=== PATIENT | female | born 1995 | race Caucasian/White ===

== ENCOUNTER 2017-06-06 09:39 | Emergency (ER) | payer OTHER ==
[2017-06-06 09:51] VITALS: TEMP 98.5; BMI 22.7
--- NOTE | 2017-06-06 10:50 | PDOC ---
History of Present Illness - General Chief Complaint: Chest Pain Stated Complaint: CHEST PRESSURE Time Seen by Provider: 06/06/17 10:27 History Source: Patient Exam Limitations: No Limitations - History of Present Illness Initial Comments: 06/06/17 10:40 21 yr female with intermittent chest pressure and shortness of breath for one week. Pt recently had lipsouction to her abdomen and back in [facility] 4 weeks ago returned from 2 weeks ago. Pt admits to some swelling to her lower legs. Pt smokes houka, denies drug tobacco or ETOH use. no hormonal control. Pt states "I feel like I can't take a deep breath". Presenting Symptoms: Chest Pain Timing/Duration: reports: constant Location: reports: substernal Past History - Travel Traveled outside of the country in the last 30 days: Yes If so, where?: [facility] - Past Medical History Allergies/Adverse Reactions: Allergies Allergy/AdvReac Type Severity Reaction Status Date / Time No Known Allergies Allergy Verified 06/06/17 09:47 Home Medications: Ambulatory Orders NK [No Known Home Medication] 06/06/17 Anemia: No Asthma: No Cancer: No Cardiac Disorders: No CVA: No COPD: No CHF: No Dementia: No Diabetes: No GI Disorders: No Disorders: No HTN: No Hypercholesterolemia: No Liver Disease: No Seizures: No Thyroid Disease: No Other medical history: DENIES. - Surgical History Abdominal Surgery: Yes Appendectomy: No Cardiac Surgery: No Cholecystectomy: Yes Lung Surgery: No Neurologic Surgery: No Orthopedic Surgery: No Other Surgical History: 06/06/17 10:42 liposuction abdomen and back - Immunization History Immunization Up to Date: Yes - Psycho/Social/Smoking Cessation Hx Anxiety: No Suicidal Ideation: No Smoking Status: No Smoking History: Never smoked Have you smoked in the past 12 months: No Information on smoking cessation initiated: No Hx Alcohol Use: Yes (SOCIAL) Drug/Substance Use Hx: No Substance Use Type: Alcohol Cardiac Specific PMH - Complaint Specific PMHX Abdominal Aortic Aneurysm: No Angina: No Cardiac Arrhythmia: No Cardiac Stent: No GERD: No Myocardial Infarction: No Pacemaker: No Pulmonary Embolus: No Valvular Heart Disease: No Peripheral Vascular Disease: No Review of Systems - Review of Systems Able to Perform ROS?: Yes Is the patient limited Panamanian proficient: No Constitutional: No: Symptoms Reported HEENTM: No: Symptoms Reported Respiratory: Yes: Shortness of Breath Cardiac (ROS): Yes: Other (chest pressure ) *Physical Exam - Vital Signs Last Vital Signs Temp Pulse Resp BP Pulse Ox 98.5 F 89 16 132/78 99 06/06/17 09:47 06/06/17 14:02 06/06/17 14:02 06/06/17 14:02 06/06/17 14:02 - Physical Exam General Appearance: Yes: Nourished, Appropriately Dressed HEENT: positive: EOMI, DESMOND, Normal ENT Inspection, TMs Normal, Pharynx Normal Neck: positive: Supple Respiratory/Chest: positive: Lungs Clear, Normal Breath Sounds. negative: Chest Tender Cardiovascular: positive: Regular Rhythm, Regular Rate Gastrointestinal/Abdominal: positive: Normal Bowel Sounds, Soft Musculoskeletal: positive: Normal Inspection Extremity: positive: Normal Capillary Refill, Normal Inspection, Normal Range of Motion. negative: Swelling, Calf Tenderness Integumentary: positive: Normal Color, Dry, Warm Neurologic: positive: biological science technician fish II-XII NML intact, Fully Oriented, Alert, Normal Mood/ Affect, Normal Response, Motor Strength 5/5 Heart Score/ECG Review - History History: Slightly suspicious - Electrocardiogram EKG: Normal - Age Age: </= 45 - ECG Intrepretation Rhythm: Regular Rhythm ED Treatment Course - LABORATORY CBC & Chemistry Diagram: 06/06/17 10:55 06/06/17 10:55 - ADDITIONAL ORDERS Additional order review: Laboratory Results 06/06/17 06/06/17 06/06/17 10:55 10:55 10:55 D-Dimer < 200 Sodium 140 Potassium 3.9 Chloride 107 Carbon Dioxide 27 Anion Gap 6 L BUN 11 D Creatinine 0.6 Creat Clearance w eGFR > 60 Random Glucose 81 D Calcium 9.1 Total Bilirubin 0.3 D AST 16 D ALT 25 Alkaline Phosphatase 72 D Creatine Kinase 68 Troponin I < 0.02 Total Protein 7.7 Albumin 4.2 Serum , Qual Negative 06/06/17 10:55 RBC 4.52 MCV 90.0 MCHC 32.3 RDW 14.7 MPV 9.2 Neutrophils % 59.5 D Lymphocytes % 30.5 D Monocytes % 8.1 D Eosinophils % 1.1 D Basophils % 0.8 D - Medications Given in the ED: ED Medications Discontinued Medications Generic Name Dose Route Start Last Admin Trade Name Freq PRN Reason Stop Dose Admin Ketorolac Tromethamine 30 mg 06/06/17 12:58 06/06/17 13:03 Toradol Injection - IVPUSH 06/06/17 12:59 30 mg ONCE ONE Administration Medical Decision Making - Medical Decision Making 06/06/17 11:07 cc: "I can't catch my breath" and "chest pressure" once l;ast week, then again today pt denies fever or chills, no cough, recent travel on airplane from [place] 2 weeks ago, had back and abdomen liposuction pt takes no medications no allergies, pt states she had some swelling to her lower legs after coming home on airplane denies now will r/o PE as pt has risk factors recent travel, recent surgery is mildly tachycardic pt aware of plan all questions asked and answered labs, EKG, 06/06/17 11:50 pt to main ER for further evaluation and workup for PE pt signed out to Kathe Weber NP. 06/06/17 18:44 *DC/Admit/Observation/Transfer Diagnosis at time of Disposition: Musculoskeletal chest pain - Discharge Dispostion Disposition: HOME Condition at time of disposition: Improved - Referrals Referrals: Yassine Cooper MD [Primary Care Provider] - - Patient Instructions Printed Discharge Instructions: DI for Musculoskeletal Pain Additional Instructions: I recommend taking Motrin 600 mg every 8 hours for discomfort. Avoid movements that trigger discomfort. If symptoms worsen please return to the ED.
[2017-06-06 11:02] LABS: BASOPHIL 0.8 % (0-2.0); EOSINOPHIL 1.1 % (0-4.5); MCH 29.1 pg (25.7-33.7); MCHC 32.3 g/dl (32.0-36.0); MEAN PLT VOLUME 9.2 fl (7.5-11.1); NEUTROPHILS 59.5 % (42.8-82.8); PLATELET COUNT 211 K/MM3 (134-434); RDW 14.7 % (11.6-15.6); WHITE BLOOD COUNT 6.5 K/mm3 (4.0-10.0)
[2017-06-06 11:21] LABS: ALBUMIN 4.2 g/dl (3.4-5.0); ANION GAP 6 (8-16); CALCIUM 9.1 mg/dL (8.5-10.1); CO2 27 mmol/L (21-32); GLUCOSE,RANDOM 81 mg/dL (74-106)
[2017-06-06 11:26] LABS: BILIRUBIN,TOTAL 0.3 mg/dL (0.2-1.0); CREATININE 0.6 mg/dL (0.55-1.02); SGOT/AST 16 U/L (15-37); SGPT/ALT 25 U/L (12-78); TOT PROT 7.7 g/dl (6.4-8.2)
[2017-06-06 11:28] LABS: ALK PHOS 72 U/L (45-117); CPK 68 IU/L (26-192); TROPONIN I < 0.02 ng/ml (0.00-0.05)
--- NOTE | 2017-06-06 12:17 | PDOC ---
*Physical Exam - Vital Signs Last Vital Signs Temp Pulse Resp BP Pulse Ox 98.5 F 103 H 19 140/96 99 06/06/17 09:47 06/06/17 09:47 06/06/17 09:47 06/06/17 09:47 06/06/17 09:47 ED Treatment Course - LABORATORY CBC & Chemistry Diagram: 06/06/17 10:55 06/06/17 10:55 - ADDITIONAL ORDERS Additional order review: Laboratory Results 06/06/17 06/06/17 10:55 10:55 Sodium 140 Potassium 3.9 Chloride 107 Carbon Dioxide 27 Anion Gap 6 L BUN 11 D Creatinine 0.6 Creat Clearance w eGFR > 60 Random Glucose 81 D Calcium 9.1 Total Bilirubin 0.3 D AST 16 D ALT 25 Alkaline Phosphatase 72 D Creatine Kinase 68 Troponin I < 0.02 Total Protein 7.7 Albumin 4.2 Serum , Qual Negative 06/06/17 10:55 RBC 4.52 MCV 90.0 MCHC 32.3 RDW 14.7 MPV 9.2 Neutrophils % 59.5 D Lymphocytes % 30.5 D Monocytes % 8.1 D Eosinophils % 1.1 D Basophils % 0.8 D Medical Decision Making - Medical Decision Making 06/06/17 11:30 Patient received in sign out from fast track for complaints of chest pain, shortness of breath on inspiration. Patient recently return from [facility] a few weeks ago after having cosmetic surgery. Patient concerning for PE. Labs pending 06/06/17 12:58 Laboratory Tests 06/06/17 06/06/17 06/06/17 10:55 10:55 10:55 WBC 6.5 D Hgb 13.2 Hct 40.7 Plt Count 211 D Neutrophils % 59.5 D D-Dimer < 200 Sodium Potassium Chloride Carbon Dioxide Anion Gap BUN Creatinine Random Glucose Calcium Creatine Kinase Troponin I Serum , Qual Negative 06/06/17 10:55 WBC Hgb Hct Plt Count Neutrophils % D-Dimer Sodium 140 Potassium 3.9 Chloride 107 Carbon Dioxide 27 Anion Gap 6 L BUN 11 D Creatinine 0.6 Random Glucose 81 D Calcium 9.1 Creatine Kinase 68 Troponin I < 0.02 Serum , Qual Patient ordered for 30 mg of Toradol IV. Patient remained sinus rhythm at 70-80 on monitor. Satting at 100%. 06/06/17 13:51 Patient states feeling better. Patient will be discharged home. *DC/Admit/Observation/Transfer Diagnosis at time of Disposition: Musculoskeletal chest pain - Discharge Dispostion Disposition: HOME Condition at time of disposition: Improved - Referrals Referrals: Yassine Cooper MD [Primary Care Provider] - - Patient Instructions Printed Discharge Instructions: DI for Musculoskeletal Pain Additional Instructions: I recommend taking Motrin 600 mg every 8 hours for discomfort. Avoid movements that trigger discomfort. If symptoms worsen please return to the ED.
[2017-06-06] MEDS ORDERED: KETOROLAC TROMETHAMINE 30 MG/1 ML VIAL IVPUSH ONE (12:58)
[2017-06-06] MEDS ORDERED: KETOROLAC TROMETHAMINE 30 MG/1 ML VIAL ONE (12:59)
[2017-06-06 14:03] VITALS: BP 132/78; PULSE 89
--- NOTE | 2017-06-09 16:59 | EKG ---
Test Reason : Blood Pressure : / mmHG Vent. Rate : 087 BPM Atrial Rate : 087 BPM P-R Int : 122 ms QRS Dur : 082 ms QT Int : 346 ms P-R-T Axes : 020 -02 018 degrees QTc Int : 416 ms SINUS RHYTHM WITH MARKED SINUS ARRHYTHMIA OTHERWISE NORMAL ECG WHEN COMPARED WITH ECG OF 25-JUN-2013 00:32, NO SIGNIFICANT CHANGE WAS FOUND Confirmed by CHAVEZ HOLMAN MD ([id number]) on 06/09/2017 4:59:32 PM Referred By: Confirmed By:CHAVEZ HOLMAN MD
== END 2017-06-06 14:06 | disposition home or self-care (01) ==
LOC: JERFT 09:39 → JER 09:39
PROC: 3E0233Z Introduction of Anti-inflammatory into Muscle, Percutaneous Approach (ICD-10-PCS; principal; 2017-06-06)
DX: R07.89 Other chest pain (principal); Z98.890 Other specified postprocedural states
CPT/HCPCS: 36415; 80053; 84484; 84703; 85025; 85379; 93005; 93010; 96372; 99285-25

== ENCOUNTER 2018-05-11 11:55 | Inpatient (IN) | payer OTHER ==
[2018-05-11] MEDS ORDERED: ELECTROLYTE-148 SOLN 500 ML IV ONE (12:00)
[2018-05-11] MEDS: ELECTROLYTE-148 SOLN 1,000 ML IV SCH (12:45)
[2018-05-11 12:52] VITALS: BMI 28.8
--- NOTE | 2018-05-11 12:52 | HP ---
Past Medical History - Admission History Source: Patient, Medical Record Limitations to Obtaining History: No Limitations - Past Medical History Cardiovascular: No: AFIB, HTN Pulmonary: No: Asthma Renal/: No: UTI Reproductive: No: Endometriosis, Fibroids, PID ...: 2 ...Para: 1 Heme/Onc: No: Anemia Infectious Disease: No: HIV, MRSA, STD's Psych: Yes: Anxiety. No: Bipolar, Depression - Past Surgical History Past Surgical History: Yes: Cholecystectomy Hx Myomectomy: No Hx Transabdominal Cerclage: No Additional Surgical History: D&C. liposuction - Smoking History Smoking history: Never smoked Have you smoked in the past 12 months: No - Alcohol/Substance Use Hx Alcohol Use: Yes (SOCIAL) - Social History ADL: Independent History of Recent Travel: No Home Medications - Allergies Allergies/Adverse Reactions: Allergies Allergy/AdvReac Type Severity Reaction Status Date / Time No Known Allergies Allergy Verified 05/11/18 12:34 - Home Medications Home Medications: Ambulatory Orders Vit 108/Iron/Folic AC [ One Tablet] 1 each PO DAILY 05/11/18 Review of Systems - Review of Systems Constitutional: reports: No Symptoms Eyes: reports: No Symptoms HENT: reports: No Symptoms Neck: reports: No Symptoms Cardiovascular: reports: No Symptoms Respiratory: reports: No Symptoms Gastrointestinal: reports: No Symptoms Genitourinary: reports: No Symptoms Breasts: reports: No Symptoms Reported Musculoskeletal: reports: No Symptoms Integumentary: reports: No Symptoms Neurological: reports: No Symptoms Endocrine: reports: No Symptoms Hematology/Lymphatic: reports: No Symptoms Psychiatric: reports: No Symptoms Physical Exam - Maternity Vital Signs: Vital Signs Temperature 98.6 F 05/11/18 12:34 Pulse Rate 95 H 05/11/18 12:34 Respiratory Rate 18 05/11/18 12:34 Blood Pressure 128/64 05/11/18 12:34 O2 Sat by Pulse Oximetry (%) Constitutional: Yes: Well Nourished, No Distress, Calm Eyes: Yes: Conjunctiva Clear, EOM Intact HENT: Yes: Atraumatic, Normocephalic Cardiovascular: Yes: WNL Breast(s): Yes: WNL - Abdominal Exam/OB Fundal Height: 39 Number of Fetuses: Single Presentation: Vertex Category: I - Vaginal Exam/OB Vaginal Bleediing: No Presentation: Vertex/Position - Physical Exam Psychiatric: Yes: Alert, Oriented Hemorrhage Risk Assessment - Risk Factors Medium Risk Factors: Yes: None High Risk Factors: Yes: None Risk Score: 1 Risk Level: Medium Risk Problem List - Problems (1) Encounter for delivery without indication Code(s): O82 - ENCOUNTER FOR DELIVERY WITHOUT INDICATION Assessment/Plan 22 y/o with SIUP at 39.2 weeks for elective primary delivery AFVSS FHTS cat 1 discussed delivery in office including risks of bleeding/infection/ damage to surrounding tissues/risk in future pregnancies of abnormal placentation/risks of /TOLAC etc, pt aware and understands consent for primary delivery signed NPO SCDs anesthesia/nursery aware
[2018-05-11] MEDS ORDERED: CITRIC ACID/SODIUM CITRATE 30 ML UNIT-DOSE CUP PO ONE (13:00)
[2018-05-11] MEDS ORDERED: TUBERCULIN PPD 5 TU/0.1ML SYRINGE (IN PATIENT USE ONLY) ID SCH (13:15)
[2018-05-11] MEDS ORDERED: OXYTOCIN 20 UNITS in 0.9% NS 40 UNIT/2,000 ML INFUS.BAG IV ONE (14:02)
[2018-05-11] MEDS ORDERED: morphine SULFATE/Preservative Free 0.5 MG/ML (1cc Syringe) ONE (14:06)
[2018-05-11] MEDS ORDERED: ceFAZolin SODIUM 1 GM VIAL ONE (14:06)
[2018-05-11] MEDS ORDERED: PHENYLEPHRINE HCL 10 MG/1 ML SINGLE DOSE VIAL ONE (14:06)
[2018-05-11] MEDS ORDERED: METHYLERGONOVINE MALEATE 0.2 MG/1 ML AMP IM PRN (14:16)
[2018-05-11] MEDS ORDERED: oxyCODONE HCL 5 MG TABLET PO PRN (14:16)
[2018-05-11] MEDS ORDERED: IBUPROFEN 600 MG TABLET (FP) PO PRN (14:16)
[2018-05-11] MEDS ORDERED: ONDANSETRON 4 MG/2 ML VIAL IVPUSH PRN (14:21)
[2018-05-11] MEDS ORDERED: MIDAZOLAM HCL 2 MG/2 ML SINGLE DOSE VIAL ONE ×2 (14:39→14:42)
--- NOTE | 2018-05-11 14:57 | OP ---
Operative Note - Note: Operative Date: 05/11/18 ([id number]) Pre-Operative Diagnosis: Desires primary delivery Operation: primary low transverse delivery Findings: normal b/l tubes and ovaries Post-Operative Diagnosis: Same as Pre-op Surgeon: Marsha Velazco Nuclear Powerplant Mechanic Helper: Joel Donaldson Anesthesiologist/WIND SITE MANAGER: Ezequiel Cagle Anesthesia: Spinal Specimens Removed: placenta Estimated Blood Loss (mls): 500 Operative Report Dictated: Yes
[2018-05-11] MEDS: OXYTOCIN 20 UNITS in 0.9% NS 20 UNIT/1,000 ML INFUS.BAG IV SCH (15:00)
--- NOTE | 2018-05-11 15:18 | SURG ---
Surgery Anaesthetic Technician Note Anaesthetic Technician: Zachary Blum PA-C Date of Service: 05/11/18 Diagnosis: Elective Cesarian section Procedure: Cesarian section I was present for the entirety of the operative procedure. For further detail, please refer to operative report.
[2018-05-11] MEDS ORDERED: OXYTOCIN 20 UNITS in 0.9% NS 20 UNIT/1,000 ML INFUS.BAG IV ONE (16:35)
[2018-05-11] MEDS: IBUPROFEN 800 MG/8 ML IJ IVPB PRN (17:25)
--- NOTE | 2018-05-11 19:35 | OP ---
DATE OF OPERATION: 05/11/2018 PREOPERATIVE DIAGNOSIS: Single intrauterine at 39.2 weeks' gestation, elective primary section delivery, declined vaginal delivery. POSTOPERATIVE DIAGNOSIS: Single intrauterine at 39.2 weeks' gestation, elective primary section delivery, declined vaginal delivery. PROCEDURE: Primary low transverse section. SURGEON: Marsha Velazco DO TEA LEAF READER: ANESTHESIA: Spinal by Dr. Cagle ESTIMATED BLOOD LOSS: 500 mL. COMPLICATIONS: None. SPECIMEN: Placenta. Sponge, needle, and instrument count correct. DISPOSITION: Stable to PACU. BRIEF HISTORY AND PROCEDURE: The patient is a 22-year-old G2, P0-0-0-1-0 at 39.2 weeks who elected to undergo a primary delivery. The patient was counseled on her options in the office, and she elected after thorough coughing for a primary section. Consents were signed upon admission on May 11, 2018. After consents were signed, the patient was taken back to the operating room and given spinal anesthesia by Dr. Cagle without difficulty and placed in the dorsal supine position. A Frank catheter was placed under sterile conditions. She was prepped and draped in the usual sterile fashion, and a hard time-out was performed. A Pfannenstiel skin incision was created in the skin with a scalpel and carried to the underlying layer of rectus fascia with the Bovie. The fascia was incised at the midline. Incision was carried in a superolateral direct with the Bovie. The fascia was tented upward and dissected off from the underlying layer of rectus with the Bovie. The musculature was identified, retracted laterally, and the peritoneum was entered bluntly and carefully dissected to allow for adequate room for delivery. A bladder blade was inserted. A transverse incision was created in the lower uterine segment, which was repaired with a double layer closure using 1 Vicryl in a running locked fashion, 2nd layer being 0 Biosyn in a running locked fashion. Bilateral tubes and ovaries were noted to be normal. Hysterotomy was noted to be hemostatic. The posterior cul-de-sac was suctioned and cleared of all amniotic membrane, blood clot, and debris. The uterus was placed back into the abdomen. Bilateral gutters were inspected and cleared of all debris. The peritoneum was reapproximated using 2-0 Vicryl in a running fashion. The musculature was reapproximated using 2-0 chromic in a single mattress suture. The fascia was reapproximated using 1 Vicryl in a running fashion. The subcutaneous tissue was irrigated and reapproximated in several interrupted sutures using 3-0 Vicryl suture, and the skin was reapproximated in a subcuticular fashion using Vicryl suture, and Steri-Strips were applied. The patient tolerated the procedure well and is recovering in stable condition in the PACU after the procedure. Sponge, needle, and instrument count was reported to be correct. MARSHA VELAZCO DO /[id number]
[2018-05-12] MEDS: IBUPROFEN 800 MG/8 ML IJ IVPB PRN (04:20)
[2018-05-12 08:43] LABS: BASO % 0.4 % (0-2.0); EOS % 0.4 % (0-4.5); HEMATOCRIT 31.2 % (32.4-45.2); HEMOGLOBIN 10.4 GM/dL (10.7-15.3); LYMPH % 16.3 % (8-40); MCH 28.3 pg (25.7-33.7); MCHC 33.3 g/dl (32.0-36.0); MEAN CELL VOLUME 84.9 fl (80-96); MEAN PLT VOLUME 8.7 fl (7.5-11.1); MONO % 6.9 % (3.8-10.2); PLATELET COUNT 184 K/MM3 (134-434); RBC 3.67 M/mm3 (3.60-5.2); RDW 14.6 % (11.6-15.6); WHITE BLOOD COUNT 11.3 K/mm3 (4.0-10.0)
[2018-05-12] MEDS: IBUPROFEN 600 MG TABLET (FP) PO PRN ×4 (08:57→22:24)
[2018-05-12] MEDS: SIMETHICONE 80 MG TAB.CHEW (FP) PO PRN ×4 (08:57→22:24)
[2018-05-12] MEDS: ACETAMINOPHEN 325 MG TABLET (FP) PO PRN ×4 (08:58→22:25)
--- NOTE | 2018-05-12 09:18 | PN ---
Progress Note (SOAP) - Subjective Chief Complaint: Pt doing well sp Section - Current Medications Current Medications: Active Medications Acetaminophen (Tylenol -) 650 mg PO Q4H PRN PRN Reason: FEVER Last Admin: 05/12/18 08:58 Dose: 650 mg Acetaminophen (Tylenol -) 650 mg PO Q4H PRN PRN Reason: PAIN LEVEL 1-5 Bisacodyl (Dulcolax Suppository -) 10 mg RC PRN PRN PRN Reason: CONSTIPATION Diphenhydramine HCl (Benadryl Injection -) 25 mg IVPUSH Q4H PRN PRN Reason: Pruritis Diphtheria/Tetanus/Acell Pertussis (Boostrix -) 0.5 ml IM .ONCE ONE Stop: 05/12/18 10:01 Parenteral Electrolytes (Plasma-Lyte 148 -) 1,000 mls @ 125 mls/hr IV ASDIR [facility] Last Admin: 05/11/18 12:45 Dose: 125 mls/hr Oxytocin/Sodium Chloride (Normal Saline+20 Units Oxytocin -) 20 unit in 1,000 mls @ 125 mls/hr IV ASDIR [facility] Last Admin: 05/11/18 15:00 Dose: 125 mls/hr Ibuprofen (Caldolor Injection -) 800 mg IVPB Q8H PRN PRN Reason: PAIN LEVEL 6-10 Last Admin: 05/12/18 04:20 Dose: 800 mg Ibuprofen (Motrin -) 600 mg PO Q4H PRN PRN Reason: PAIN LEVEL 1-5 Last Admin: 05/12/18 08:57 Dose: 600 mg Methylergonovine Maleate (Methergine Injection -) 0.2 mg IM Q4H PRN PRN Reason: Excessive Bleeding (L&D) Ondansetron HCl (Zofran Injection) 4 mg IVPUSH Q4H PRN PRN Reason: NAUSEA Oxycodone HCl (Roxicodone -) 5 mg PO Q4H PRN PRN Reason: PAIN LEVEL 4 - 6 Oxycodone HCl (Roxicodone -) 10 mg PO Q4H PRN PRN Reason: PAIN LEVEL 7 - 10 Multivit/Folic Acid/Iron ( Vitamins (Sjr) -) 1 tab PO DAILY [facility] Simethicone (Mylicon -) 80 mg PO Q4H PRN PRN Reason: GAS Last Admin: 05/12/18 08:57 Dose: 80 mg Tuberculin PPD (Tubersol Intermediate Strength) 5 tu ID ONCE SURY Stop: 05/12/18 13:14 Last Admin: 05/11/18 16:42 Dose: 5 tu - Objective Vital Signs: Vital Signs Temperature 98.7 F 05/12/18 06:00 Pulse Rate 79 05/12/18 06:00 Respiratory Rate 18 05/12/18 06:00 Blood Pressure 105/61 05/12/18 06:00 O2 Sat by Pulse Oximetry (%) 100 05/11/18 16:10 Constitutional: Yes: Well Nourished, No Distress Neck: Yes: WNL Cardiovascular: Yes: WNL, Regular Rate and Rhythm Respiratory: Yes: WNL, Regular, CTA Bilaterally Gastrointestinal: Yes: WNL, Normal Bowel Sounds, Soft, Abdomen, Obese ....Post : Yes: Uterus firm, Uterus non-tender Musculoskeletal: Yes: WNL Extremities: Yes: WNL Edema: No Wound/Incision: Yes: Steri Strips, Open to air, Dressing Removed Labs Lab Results: CBC, BMP 05/12/18 07:10 Problem List - Problems (1) History of low transverse section Code(s): Z98.891 - HISTORY OF UTERINE SCAR FROM PREVIOUS SURGERY Assessment/Plan POD1 stable SP CS Plan oob ambulate
[2018-05-12] MEDS: PRENATAL VITAMINS W/ FOLIC ACID TABLET (FP) PO SCH (10:00)
--- NOTE | 2018-05-12 10:34 | PN ---
Progress Note (short form) - Note Progress Note: Anesthesia postop note 22 y/o F s/p spinal anesthesia for section, duramorph for postop pain management POD#1, vss, aaox3, pain well controlled, sensory motor intact distally. No anesthesia complications.
[2018-05-12] MEDS ORDERED: DIPHTH,PERTUSS(ACELL),TET 0.5 ML DISP.SYRIN IM ONE (12:00)
[2018-05-12] MEDS ORDERED: BISACODYL 10 MG SUPP.RECT RC PRN (14:16)
[2018-05-12] MEDS: OXYTOCIN 20 UNITS in 0.9% NS 20 UNIT/1,000 ML INFUS.BAG IV SCH (15:12)
[2018-05-12] MEDS: ELECTROLYTE-148 SOLN 1,000 ML IV SCH (15:12)
[2018-05-13] MEDS: oxyCODONE HCL 5 MG TABLET PO PRN ×2 (01:40→05:54)
[2018-05-13] MEDS: SIMETHICONE 80 MG TAB.CHEW (FP) PO PRN ×3 (05:54→23:21)
[2018-05-13] MEDS: ACETAMINOPHEN 325 MG TABLET (FP) PO PRN ×3 (05:55→23:21)
--- NOTE | 2018-05-13 07:18 | PN ---
Progress Note (SOAP) - Subjective Chief Complaint: Pt doing well - Current Medications Current Medications: Active Medications Acetaminophen (Tylenol -) 650 mg PO Q4H PRN PRN Reason: FEVER Last Admin: 05/12/18 17:25 Dose: 650 mg Acetaminophen (Tylenol -) 650 mg PO Q4H PRN PRN Reason: PAIN LEVEL 1-5 Last Admin: 05/13/18 05:55 Dose: 650 mg Bisacodyl (Dulcolax Suppository -) 10 mg RC PRN PRN PRN Reason: CONSTIPATION Diphenhydramine HCl (Benadryl Injection -) 25 mg IVPUSH Q4H PRN PRN Reason: Pruritis Ibuprofen (Caldolor Injection -) 800 mg IVPB Q8H PRN PRN Reason: PAIN LEVEL 6-10 Last Admin: 05/12/18 04:20 Dose: 800 mg Ibuprofen (Motrin -) 600 mg PO Q4H PRN PRN Reason: PAIN LEVEL 1-5 Last Admin: 05/12/18 22:24 Dose: 600 mg Methylergonovine Maleate (Methergine Injection -) 0.2 mg IM Q4H PRN PRN Reason: Excessive Bleeding (L&D) Ondansetron HCl (Zofran Injection) 4 mg IVPUSH Q4H PRN PRN Reason: NAUSEA Oxycodone HCl (Roxicodone -) 5 mg PO Q4H PRN PRN Reason: PAIN LEVEL 4 - 6 Oxycodone HCl (Roxicodone -) 10 mg PO Q4H PRN PRN Reason: PAIN LEVEL 7 - 10 Last Admin: 05/13/18 05:54 Dose: 10 mg Multivit/Folic Acid/Iron ( Vitamins (Sjr) -) 1 tab PO DAILY SURY Last Admin: 05/12/18 10:00 Dose: 1 tab Simethicone (Mylicon -) 80 mg PO Q4H PRN PRN Reason: GAS Last Admin: 05/13/18 05:54 Dose: 80 mg - Objective Vital Signs: Vital Signs Temperature 98.1 F 05/12/18 21:12 Pulse Rate 62 05/12/18 21:12 Respiratory Rate 18 05/12/18 21:12 Blood Pressure 114/61 05/12/18 21:12 O2 Sat by Pulse Oximetry (%) 100 05/11/18 16:10 Constitutional: Yes: Well Nourished, No Distress HENT: Yes: WNL Neck: Yes: WNL Respiratory: Yes: WNL, Regular Gastrointestinal: Yes: WNL, Normal Bowel Sounds, Soft ....Post : Yes: Uterus firm, Uterus non-tender Breast(s): Yes: WNL Musculoskeletal: Yes: WNL Extremities: Yes: WNL Edema: No Wound/Incision: Yes: Clean/Dry, Well Approximated, Dressing Dry and Intact Neurological: Yes: WNL, Alert, Oriented Labs Lab Results: CBC, BMP 05/12/18 07:10 Problem List - Problems (1) History of low transverse section Code(s): Z98.891 - HISTORY OF UTERINE SCAR FROM PREVIOUS SURGERY Assessment/Plan POD2 stable SP CS Plan oob ambulate
[2018-05-13] MEDS: PRENATAL VITAMINS W/ FOLIC ACID TABLET (FP) PO SCH (09:46)
[2018-05-13] MEDS: IBUPROFEN 600 MG TABLET (FP) PO PRN ×2 (09:58→23:21)
[2018-05-14 08:32] VITALS: BP 111/69; PULSE 73; TEMP 98.4
[2018-05-14 08:32] LABS: BASO % 0.4 % (0-2.0); EOS % 3.1 % (0-4.5); HEMATOCRIT 31.3 % (32.4-45.2); HEMOGLOBIN 10.2 GM/dL (10.7-15.3); LYMPH % 34.4 % (8-40); MCH 27.9 pg (25.7-33.7); MCHC 32.7 g/dl (32.0-36.0); MEAN CELL VOLUME 85.4 fl (80-96); MEAN PLT VOLUME 8.3 fl (7.5-11.1); MONO % 8.4 % (3.8-10.2); NEUT % 53.7 % (42.8-82.8); PLATELET COUNT 234 K/MM3 (134-434); RBC 3.66 M/mm3 (3.60-5.2); RDW 14.3 % (11.6-15.6); WHITE BLOOD COUNT 7.3 K/mm3 (4.0-10.0)
[2018-05-14] MEDS: PRENATAL VITAMINS W/ FOLIC ACID TABLET (FP) PO SCH (09:11)
--- NOTE | 2018-05-18 18:32 | PATH ---
Surgical Pathology Report Patient Name: NNAMDI CAI Med. Rec. #: [id number] /Age/Gender: 1995 (Age: 22) / F Account: [id number] Location: [facility] OBS/MANAGER SQL Taken: 05/11/2018 Received: 05/12/2018 Reported: 05/18/2018 Physicians: Marsha Velazco M.D. Specimen(s) Received PLACENTA Clinical History , 39.2 weeks elective Final Diagnosis PLACENTA: THIRD TRIMESTER PLACENTA. TRIVASCULAR CORD. MEMBRANES WITH NO DIAGNOSTIC ABNORMALITIES. Electronically Signed Awilda Stack M.D. Gross Description The specimen is received fresh labeled placenta and is a 550 gram, 20.0 x 15.0 x 3.4 cm. placenta with attached membranes and umbilical cord. The attached membranes are pineda, translucent with focal opacities and insert marginally. The umbilical cord measures 37 cm. in length and averages 1 cm. in diameter. The cord inserts centrally. No true knots or strictures are identified. Cut surface of the umbilical cord reveals no vessels. The surface is green blue with moderate fibrin deposition and appropriate caliber vessels. The maternal surface is red-brown with focal defects. Sectioning reveals red-brown, spongy parenchyma. No lesions are identified. Small Arms Repairer sections are submitted in three cassettes as follows: 1- membrane rolls and umbilical cord; 2-3- full thickness sections of placenta. 05/15/2018 [facility]05/15/2018
== END 2018-05-14 13:30 | disposition home or self-care (01) | DRG 540 ==
LOC: JLDR 11:55 → J3W 17:10
PROVIDERS: ADMIT Obstetrics & Gynecology; ATTEND Obstetrics & Gynecology
PROC: 10D00Z1 Extraction of Products of Conception, Low, Open Approach (ICD-10-PCS; principal; 2018-05-11)
DX: O82 Encounter for cesarean delivery without indication (principal); Z3A.39 39 weeks gestation of pregnancy; Z37.0 Single live birth
CPT/HCPCS: 36415; 85025; 88307-TC; 90715

== ENCOUNTER → 2019-11-22 | Day surgery (SDC) | payer OTHER ==
--- NOTE | 2019-11-23 16:27 | PATH ---
Surgical Pathology Report Patient Name: NNAMDI MCDONALD [facility]. Rec. #: [id number] /Age/Gender: 1995 (Age: 24) / F Account: [id number] Location: [facility]MOGRAPHY- [facility] Taken: 11/22/2019 Received: 11/22/2019 Reported: 11/23/2019 Physicians: Venita Soto M.D. Specimen(s) Received RIGHT BREAST CORE BIOPSY Clinical History Palpable 2.05cm mass Ultrasound findings: Suspicious Final Diagnosis RIGHT BREAST 4-5:00 2.1CM MASS, CORE BIOPSY: BREAST TISSUE WITH FIBROADENOMA. Electronically Signed Awilda Stack M.D. Gross Description Received in formalin labeled "right breast 4-5:00," are 4 pineda-yellow, cylindrical portions of fibroadipose tissue ranging from 0.2-0.7 cm in length and averaging 0.1 cm in diameter. The specimens are submitted in toto in one cassette. Time to formalin fixation: Less than one minute Total formalin fixation time: Approximately 6 hours. /11/22/2019 [facility]11/22/2019
== END | disposition home or self-care (01) ==
LOC: JRADUS-SUR 12:36
PROVIDERS: ATTEND Physician Assistant
PROC: 0HBT3ZX Excision of Right Breast, Percutaneous Approach, Diagnostic (ICD-10-PCS; principal; 2019-11-22)
DX: D24.1 Benign neoplasm of right breast (principal); N63.12 Unspecified lump in the right breast, upper inner quadrant
CPT/HCPCS: 19083; 87899; 88305-TC; A4648